=== PATIENT | female | born 1990 | race Caucasian/White ===

== ENCOUNTER 2017-09-07 13:09 | Inpatient (IN) | payer SELFPAY ==
[2017-09-07 14:28] LABS: MEAN CORPUSCULAR HEMOGLOBIN 29.1 pg (27.0-33.0); MEAN CORPUSCULAR HGB CONC 33.1 g/dl (32.0-36.5); MEAN CORPUSCULAR VOLUME 88.1 fl (80.0-96.0); PLATELET COUNT, AUTOMATED 278 10^3/uL (150-450); RED CELL DISTRIBUTION WIDTH 13.5 % (11.5-14.5); WHITE BLOOD COUNT 6.3 10^3/uL (4.0-10.0)
[2017-09-07 14:33] LABS: CONTROL LINE HCG INT CTR LINE PRESENT
[2017-09-07 14:51] LABS: ALBUMIN 4.7 GM/DL (3.2-5.2); ALBUMIN/GLOBULIN RATIO 1.34 (1.00-1.93); ALKALINE PHOSPHATASE 55 U/L (45-117); ALT/SGPT 79 U/L (12-78); ANION GAP 8 MEQ/L (8-16); AST/SGOT 33 U/L (7-37); BILIRUBIN,DIRECT 0.2 MG/DL (0.0-0.2); BILIRUBIN,TOTAL 0.6 MG/DL (0.2-1.0); BLOOD UREA NITROGEN 8 MG/DL (7-18); CALCIUM LEVEL 9.7 MG/DL (8.5-10.1); CARBON DIOXIDE LEVEL 27 MEQ/L (21-32); CHLORIDE LEVEL 105 MEQ/L (98-107); CREATININE FOR GFR 0.58 MG/DL (0.55-1.02); GLOMERULAR FILTRATION RATE > 60.0 (>60); GLUCOSE, FASTING 89 MG/DL (70-105); POTASSIUM SERUM 3.7 MEQ/L (3.5-5.1); SODIUM LEVEL 140 MEQ/L (136-145); TOTAL PROTEIN 8.2 GM/DL (6.4-8.2)
[2017-09-07] MEDS ORDERED: SERT-138 PO (14:52)
[2017-09-07] MEDS ORDERED: SERT50TA PO (14:53)
[2017-09-07] MEDS ORDERED: traZODone 50 MG TAB PO PRN (19:15)
[2017-09-07] MEDS ORDERED: MAALOX 30 ML SUSP *UDC PO PRN (19:15)
[2017-09-07 19:31] LABS: METHADONE URINE NEGATIVE (NEGATIVE)
[2017-09-07] MEDS: PALIPERIDONE 3 MG ER TAB (INVEGA) PO SCH (21:39)
[2017-09-08 00:21] VITALS: BP 127/73
[2017-09-08 06:36] VITALS: BP 128/70
--- NOTE | 2017-09-08 11:27 | HPEPDOC ---
[facility] Medical History & Physical Date of Admission Sep 07, 2017 History and Physical PCP: None ATTENDING: Dr. Chip Shah HPI: 27yoF admitted to [facility] for unspecified psychotic disorder, being medically examined today. The pt has no acute medical complaints today. She is able to provide only limited history and states she has no complaints at this time. Per record, Pt is Von, 3 mo Post . Denies any fevers, chills, weakness, fatigue, DOUGLAS, CP, SOB, cough, palpitations, abdominal pain, N/V/D or changes in bowel or bladder habits. PMHx: anxiety depression H/O SI PSHX: ectopic 2014 SOCHX: Resides in: [facility] Marital Status: Kids: 1 Employment: unemployed Tobacco use: denies ETOH: denies Illicit Drugs: Denies IV Drug Use: Denies Tattoos done unprofessionally: Denies FAMHX: Pt is not able to provide at this time, ROS: As noted in HPI, otherwise 11pt ROS of systems reviewed and remarkable only for LMP 07/31/17. PE: GEN: 27yoF, appears stated age. Well-nourished, well developed. No acute distress. Alert and oriented x 3. Pt is not able to answer many questions, does not make eye contact. HEENT: Normocephalic, atraumatic. Pupils are equal, round, and reactive to light. Extraocular movements are intact. No nystagmus appreciated. Sclera are nonicteric. Conjunctiva without injection. Nose midline. Nasal turbinates without bogginess. EACs both patent BL. TMs both visualized and triplett with good cone of light, no bulging or erythema. No facial asymmetry. Moist mucous membranes. Dentition fair. Pharynx pink and moist, no cobblestoning. Neck supple , trachea midline. No lymphadenopathy or thyromegaly appreciated. CHEST: Regular rate and rhythm, +S1, +S2 LUNGS: Clear to auscultation bilaterally. No wheezes, rales, or rhonchi. Breathing appears symmetric and easy. Patient is speaking in full sentences. No accessory muscle use. ABD: Round, soft, non-tender, non-distended. +Bowel sounds throughout. No rebound or guarding. No costovertebral angle tenderness. EXT: Pulses 2+ bilaterally dorsalis pedis and radial. No lower extremity edema appreciated. SKIN: [place], dry, warm. Capillary refill <2sec. No rashes. NEURO: Alert and oriented x 3. Cranial nerves III-XII are intact. No focal deficits appreciated. EKG: pending. A&P: 27yoF admitted to [facility] for unspecified psychotic disorder 1. Psych. Plan per Psychiatry. Obtain baseline EKG to assure the safety of psychiatric medications as they can prolong the QT interval. 2. Elevated LFT. Recheck CMP in AM. Add hepatitis profile as well. 3. Follow up. No Primary Care Provider. Will attempt to establish PCP on discharge. 4. Staff member Nisha present throughout exam. Vital Signs Vital Signs Date Time Temp Pulse Resp B/P (MAP) Pulse Ox O2 Delivery O2 Flow Rate FiO2 09/08/17 06:36 97.9 66 18 128/70 (89) 09/07/17 22:03 98 Room Air Laboratory Data Labs 24H Laboratory Tests 2 09/07/17 14:05: Nucleated Red Blood Cells % (auto) 0.0, Anion Gap 8, Glomerular Filtration Rate > 60.0, Calcium Level 9.7, Aspartate Amino Transf (AST/SGOT) 33, Alanine Aminotransferase (ALT/SGPT) 79H, Alkaline Phosphatase 55, Total Bilirubin 0.6, Direct Bilirubin 0.2, Total Protein 8.2, Albumin 4.7, Albumin/Globulin Ratio 1.34, Thyroid Stimulating Hormone (TSH) 1.430, Human Chorionic Gonadotropin, Qual NEGATIVE, Salicylates Level < 1.7L, Urine Amphetamines Screen NEGATIVE, Urine Benzodiazepines Screen NEGATIVE, Urine Opiates Screen NEGATIVE, Urine Methadone Screen NEGATIVE, Acetaminophen Level < 2.0L, Urine Barbiturates Screen NEGATIVE, Urine Phencyclidine Screen NEGATIVE, Urine Cocaine Metabolite Screen NEGATIVE, Urine Cannabinoids Screen NEGATIVE, Ethyl Alcohol Level < 0.003 CBC/BMP Laboratory Tests 09/07/17 14:05 Red Blood Count 4.94, Mean Corpuscular Volume 88.1, Mean Corpuscular Hemoglobin 29.1, Mean Corpuscular Hemoglobin Concent 33.1, Red Cell Distribution Width 13.5 Home Medications Scheduled Sertraline Hcl (Sertraline HCl) 50 Mg Tab, 50 MG PO DAILY Allergies Coded Allergies: No Known Allergies (Unverified , 09/07/17) Michelle Jones Sep 08, 2017 11:27
[2017-09-08] MEDS: VENLAFAXINE **XR** 37.5 MG CAPSULE PO SCH (15:15)
[2017-09-08 18:00] VITALS: BP 120/68
--- NOTE | 2017-09-08 19:08 | ECGEPIP ---
Stationary ECG Study [facility] Test Date: 2017-09-08 Pat Name: PRISCILLA REIS Department: Room: [place] [address] Gender: F Financial Analysis Consultant: MODESTA : 1990 Requested By: Michelle Jones Order Number: [id number] Reading MD: Chip Shah Measurements Intervals [place] Rate: 67 P: 52 [place]: 91 QRS: 76 QRSD: 94 T: 0 QT: 373 QTc: 395 Interpretive Statements SINUS RHYTHM WITH SINUS ARRHYTHMIA WITH SHORT [place] INTERVAL ST DEVIATION AND MODERATE T-WAVE ABNORMALITY, CONSIDER ANTERIOR ISCHEMIA Comparison tracing not on file Electronically Signed On 09-08-2017 19:08:06 EDT by Chip Shah
[2017-09-08] MEDS: PALIPERIDONE 3 MG ER TAB (INVEGA) PO SCH (19:44)
[2017-09-08] MEDS: QUEtiapine FUMARATE 50 MG TAB PO SCH (19:44)
[2017-09-08] MEDS ORDERED: QUEtiapine FUMARATE 50 MG TAB PO ONE (20:30)
[2017-09-08] MEDS: OLANZapine ORAL DISINTEGRATING TAB 5MG PO PRN (20:31)
[2017-09-09 07:10] VITALS: BP 139/64
[2017-09-09 07:14] LABS: ALBUMIN 4.2 GM/DL (3.2-5.2); ALBUMIN/GLOBULIN RATIO 1.45 (1.00-1.93); ALKALINE PHOSPHATASE 51 U/L (45-117); ALT/SGPT 66 U/L (12-78); ANION GAP 8 MEQ/L (8-16); AST/SGOT 20 U/L (7-37); BILIRUBIN,TOTAL 0.9 MG/DL (0.2-1.0); BLOOD UREA NITROGEN 12 MG/DL (7-18); CALCIUM LEVEL 9.5 MG/DL (8.5-10.1); CARBON DIOXIDE LEVEL 29 MEQ/L (21-32); CHLORIDE LEVEL 105 MEQ/L (98-107); CREATININE FOR GFR 0.66 MG/DL (0.55-1.02); GLOMERULAR FILTRATION RATE > 60.0 (>60); GLUCOSE, FASTING 83 MG/DL (70-105); POTASSIUM SERUM 3.7 MEQ/L (3.5-5.1); SODIUM LEVEL 142 MEQ/L (136-145); TOTAL PROTEIN 7.1 GM/DL (6.4-8.2)
--- NOTE | 2017-09-09 10:00 | MHHPE ---
DATE OF ADMISSION: 09/07/2017 LEGAL STATUS ON ADMISSION: 9.39 legal status. CHIEF COMPLAINT: Patient is selectively mute. HISTORY OF PRESENT ILLNESS: 27-year-old female with history of depression admitted to our unit on a 9.39 legal status. According to the chart, the patient was brought to the emergency department by her and she is 3 months and displaying psychosis. The patient was unable to cooperate with the information. The stated that the patient has a long history of depression and is now three months . She gave to a daughter, that she has been hospitalized two times at [facility], last time admitted 2 years ago for suicidal ideation with plans of suffocation, stabbing or jumping from a structure. She also was hospitalized in the past at [facility] in [place]. According to the , the patient is suffering from auditory and visual hallucinations and is being delusional. He stated that she is seeing three women and claims, "she is helping them to kill themselves". He believes she is at risk of killing others. Apparently, she has been having command auditory hallucinations to harm others in addition to paranoid delusions. During the interview today, patient is guarded with very poor eye contact, severe psychomotor retardation, displaying thought blocking. There is a significant delay between the question and answer. The patient admits to auditory hallucinations, says "Divehi and French languages". She makes states such as "if I let him or I get close to him". PAST PSYCHIATRIC HISTORY: As above. The patient has a history of severe depression, possibly with psychotic features. PAST MEDICAL HISTORY: Unobtainable at this time. FAMILY HISTORY: Could not be obtained. SOCIAL HISTORY: Could not be obtained. SUBSTANCE ABUSE HISTORY: Could not be obtained. REVIEW OF SYSTEMS: Could not be obtained. PHYSICAL EXAMINATION: As per physician assistant tennis professional. LABS: CBC is within normal limits. CMP is unremarkable, except ALT of 79. TSH within normal limits. test is negative. Blood alcohol level is negative. Urine drug screen is negative. MENTAL STATUS EXAMINATION: The patient is unable to cooperate with normal mental status examination. The patient is dressed in [facility]. Speech is selectively mute. No eye contact. Mood is severely depressed. Affect blunted. Unable to assess memory, attention, concentration or orientation. The patient appears to react to general stimuli. The patient appears to be religiously preoccupied and paranoid. Judgment and insight are very poor. DIAGNOSIS: AXIS I: Unspecified psychosis. Rule out major depressive disorder with psychotic features. Rule out psychosis. AXIS II: Deferred. AXIS III: None acute. INITIAL TREATMENT PLAN: The patient was admitted on a 9.39 legal status. Complete history could not be obtained. With her permission, family will be contacted and data base will be expanded. Current medication regimen will be reviewed and changed accordingly. She will be provided with a protected environment. She will be treated with individual, group, and milieu therapy. She will also receive supportive psychoeducation. Discharge planning will commence immediately. Length of stay will be within 7 and 10 days. Outpatient followup will be strongly recommended. Treatment plan will focus initially on depression, risk for suicide. Risk for harm to others. Altered thoughts and altered perceptions.
[2017-09-09] MEDS: VENLAFAXINE **XR** 37.5 MG CAPSULE PO SCH (11:41)
[2017-09-09] MEDS: ACETAMINOPHEN TAB 650MG DOSE (2X325MG) PO PRN (14:54)
[2017-09-09 18:23] VITALS: BP 118/70
--- NOTE | 2017-09-09 20:19 | MHIPN ---
DATE: 09/09/2017 The patient is on Effexor XR 37.5 mg by mouth in the morning, Seroquel 50 mg by mouth at night, Invega 3 mg by mouth at night, Zyprexa Zydis as needed for anxiety and agitation. SUBJECTIVE: The patient is selectively mute. OBJECTIVE: No major changes from yesterday. The patient continues to be selectively mute, although she is able to answer some questions. Her thought blocking appears to be somewhat improved from yesterday. The patient continues to be paranoid, appears to be reacting to internal stimuli. Reports auditory hallucinations. The patient is tolerating well the medication and denies side effects. MENTAL STATUS EXAMINATION: The patient is dressed in [facility]. The patient is partially cooperative. Minimal eye contact. Speech is very slow, monotone with blocking. Mood is very depressed. Affect is blunted. The patient continues delusions with auditory and visual hallucinations. Unable to test attention, concentration and memory. Insight and judgment are very poor. ASSESSMENT: 1. Depression. 2. Psychosis. PLAN: 1. Increase Effexor XR to 75 mg by mouth in the morning. 2. Continue Seroquel 50 mg by mouth at night. 3. Continue Invega 3 mg by mouth at night. 4. Continue olanzapine 5 mg as needed for anxiety and agitation.
[2017-09-09] MEDS: PALIPERIDONE 3 MG ER TAB (INVEGA) PO SCH (20:31)
[2017-09-09] MEDS: QUEtiapine FUMARATE 50 MG TAB PO SCH (20:31)
[2017-09-09] MEDS: OLANZapine ORAL DISINTEGRATING TAB 5MG PO PRN (21:45)
[2017-09-10 06:37] VITALS: BP 112/65
[2017-09-10] MEDS: VENLAFAXINE **XR** 75MG CAPSULE PO SCH (08:55)
[2017-09-10] MEDS: ACETAMINOPHEN TAB 650MG DOSE (2X325MG) PO PRN (11:58)
--- NOTE | 2017-09-10 16:48 | MHIPN ---
DATE: 09/10/2017 27-year-old female with history of depression admitted on a 9.39 legal status. Patient is 3 months and displaying psychosis. Patient was unable to cooperate with mental status examination, was very paranoid, delusional, presenting thought blocking and significant delay between question and answer. MEDICATIONS: - Effexor XR 75 mg by mouth every morning - Seroquel 50 mg by mouth nightly - Invega 3 mg by mouth nightly SUBJECTIVE: "I'm about the same." OBJECTIVE: Patient continues psychotic with thought blocking and significant delay between question and answer, although has improved for the last 24 hours. Patient is denying side effect from the medication. Patient is compliant. MENTAL STATUS EXAMINATION: Patient is dressed in [facility]. Patient is cooperative, has very poor eye contact. Speech is very slow and monotone. Mood is depressed. Affect is blunted. Patient continues with paranoid delusions, appears to respond to internal stimuli. Unable to test attention and concentration and memory but appears to be significantly impaired. Insight and judgment is very poor. ASSESSMENT: 1. psychosis. 2. depression. PLAN: 1. Continue Effexor XR 75 mg by mouth every morning. 2. Continue Seroquel 50 mg by mouth nightly. 3. Continue Invega 3 mg by mouth nightly. 4. Continue medication management, individual and group therapy.
[2017-09-10 18:00] VITALS: BP 112/65
[2017-09-10] MEDS: PALIPERIDONE 3 MG ER TAB (INVEGA) PO SCH (21:48)
[2017-09-10] MEDS: QUEtiapine FUMARATE 50 MG TAB PO SCH (21:48)
[2017-09-11] MEDS: ACETAMINOPHEN TAB 650MG DOSE (2X325MG) PO PRN (03:17)
[2017-09-11 06:31] VITALS: BP 124/77
[2017-09-11] MEDS: VENLAFAXINE **XR** 75MG CAPSULE PO SCH (08:35)
--- NOTE | 2017-09-11 16:37 | IPN ---
DATE: 09/11/2017 A 27-year-old female with a history of depression, admitted to our unit on a 9.39 legal status. Patient is 3 months and is also displaying psychosis. Patient was unable to cooperate with mental status examination. Was very paranoid with significant thought blocking and delay between question and answer. MEDICATIONS: - Effexor XR 75 mg by mouth every morning. - Seroquel 50 mg by mouth at bedtime. - Invega 3 mg by mouth at bedtime SUBJECTIVE: "M parents are killers." OBJECTIVE: Patient continues to be paranoid. Her thought blocking and delay between question and answer has been normalizing. Patient says that she can think more clearly and less confused. Patient continues with very little insight. MENTAL STATUS EXAMINATION: Patient dressed in [facility]. Patient is cooperative. Has very poor eye contact. The speech is very slow and monotone, blocked. Mood is depressed. Affect is blunted. The patient continues paranoid, delusional. Appears to respond to internal stimuli. Unable to test attention, concentration, and memory. Insight and judgment are very poor. ASSESSMENT: 1. psychosis. 2. depression. PLAN: 1. Continue Effexor XR 75 mg by mouth every morning. 2. Continue Seroquel 50 mg by mouth at bedtime. 3. Continue Invega 3 mg by mouth at bedtime. 4. Continue medication management, individual and group therapy.
[2017-09-11 18:00] VITALS: BP 100/56
[2017-09-11] MEDS: QUEtiapine FUMARATE 50 MG TAB PO SCH (20:58)
[2017-09-11] MEDS: PALIPERIDONE 3 MG ER TAB (INVEGA) PO SCH (20:58)
[2017-09-12 06:43] VITALS: BP 127/56
[2017-09-12] MEDS: VENLAFAXINE **XR** 75MG CAPSULE PO SCH (08:59)
[2017-09-12 18:00] VITALS: BP 115/60
[2017-09-12] MEDS: PALIPERIDONE 3 MG ER TAB (INVEGA) PO SCH (21:02)
[2017-09-12] MEDS: QUEtiapine FUMARATE 50 MG TAB PO SCH (21:03)
[2017-09-13 07:21] VITALS: BP 119/74
[2017-09-13] MEDS: VENLAFAXINE **XR** 75MG CAPSULE PO SCH (08:24)
[2017-09-13] MEDS: OLANZapine ORAL DISINTEGRATING TAB 5MG PO PRN (10:43)
[2017-09-13] MEDS: ACETAMINOPHEN TAB 650MG DOSE (2X325MG) PO PRN (16:36)
[2017-09-13 18:45] VITALS: BP 118/68
[2017-09-13] MEDS: PALIPERIDONE 3 MG ER TAB (INVEGA) PO SCH (21:21)
[2017-09-13] MEDS: QUEtiapine FUMARATE 50 MG TAB PO SCH (21:21)
[2017-09-14 07:20] VITALS: BP 109/64
[2017-09-14] MEDS: VENLAFAXINE **XR** 75MG CAPSULE PO SCH (08:15)
[2017-09-14] MEDS: OLANZapine ORAL DISINTEGRATING TAB 5MG PO PRN ×2 (08:15→16:39)
[2017-09-14] MEDS: MOM 30ML SUSPENSION UDC PO PRN (11:36)
[2017-09-14 18:00] VITALS: BP 113/63
[2017-09-14] MEDS: PALIPERIDONE 3 MG ER TAB (INVEGA) PO SCH (21:38)
[2017-09-14] MEDS: QUEtiapine FUMARATE 50 MG TAB PO SCH (21:38)
[2017-09-15 07:02] VITALS: BP 121/68
[2017-09-15] MEDS: VENLAFAXINE **XR** 75MG CAPSULE PO SCH (09:41)
--- NOTE | 2017-09-15 10:03 | IPN ---
DATE OF VISIT: 09/14/2017 This patient is a 27-year-old female with history of depression admitted to our unit on a 939 legal status. The patient is three months post and also displaying symptoms of post psychosis. The patient was very paranoid at arrival to the emergency department. MEDICATIONS: - Effexor XR 75 mg by mouth every morning - Seroquel 50 mg by mouth nightly - Invega 3 mg by mouth nightly SUBJECTIVE: "I am feeling a little better." OBJECTIVE: The patient is improving slowly. The patient is less paranoid. Her affect has improved. She is able to smile. She no longer has thought blocking and her paranoid delusion has decreased. MENTAL STATUS EXAMINATION: The patient is dressed in [facility]. The patient is more cooperative. She has fair eye contact. Speech is slow and monotone but improved. Mood is depressed but improved. Affect is restricted. The patient continues with paranoid delusions but also the severity and the frequency are decreased. The patient is no longer responding to internal stimuli. The patient's concentration and memory are improving. Insight and judgment are also improving. ASSESSMENT: 1. Post psychosis. 2. Post depression. PLAN: 1. Continue Effexor XR 75 mg by mouth every morning. 2. Seroquel 50 mg by mouth nightly. 3. Invega 3 mg by mouth nightly. 4. Continue medication management, individual and group therapy.
--- NOTE | 2017-09-15 10:31 | IPNPDOC ---
Date Seen The patient was seen on 09/15/17. Progress Note HPI: 27yoF admitted to [facility] for unspecified psychotic disorder, being medically examined today. Pt is Yarsani, 3 mo Post . I am requested to re evaluate the pt related to ear pain. The Pt states she has noticed B/L ear pressure. PND and rhinorrhea clear. No ST. No fevers/chills. No cough/sputum. Pt states she is known to have allergies. Denies any fevers, chills, weakness, fatigue, DOUGLAS, CP, SOB, cough, palpitations, abdominal pain, N/V/D or changes in bowel or bladder habits. PMHx: anxiety depression H/O SI PSHX: ectopic 2014 PE: GEN: 27yoF, appears stated age. Well-nourished, well developed. No acute distress. Alert and oriented x 3. Pt is slow to answer questions, does not make eye contact. HEENT: Normocephalic, atraumatic. Pupils are equal, round, and reactive to light. Extraocular movements are intact. No nystagmus appreciated. Sclera are nonicteric. Conjunctiva without injection. Nose midline. Nasal turbinates without bogginess. EACs both patent BL. TMs both visualized and triplett with good cone of light, no bulging or erythema. No facial asymmetry. No facial TTP. Moist mucous membranes. Dentition fair. Pharynx pink and moist. Neck supple, trachea midline. No lymphadenopathy or thyromegaly appreciated. CHEST: Regular rate and rhythm, +S1, +S2 LUNGS: Clear to auscultation bilaterally. No wheezes, rales, or rhonchi. Breathing appears symmetric and easy. Patient is speaking in full sentences. No accessory muscle use. ABD: Round, soft, non-tender, non-distended. +Bowel sounds throughout. No rebound or guarding. No costovertebral angle tenderness. EXT: Pulses 2+ bilaterally dorsalis pedis and radial. No lower extremity edema appreciated. SKIN: [place], dry, warm. Capillary refill <2sec. No rashes. NEURO: Alert and oriented x 3. Cranial nerves III-XII are intact. No focal deficits appreciated. EKG: on file. A&P: 27yoF admitted to [facility] for unspecified psychotic disorder 1. Psych. Plan per Psychiatry. Obtain baseline EKG to assure the safety of psychiatric medications as they can prolong the QT interval. 2. Allergic rhinitis. T max 99.1. No leukocytosis. No signs of infection at this time. Symptoms seem c/w allergic rhinitis. Add Zyrtec 10 mg daily. Add Flonase daily. Monitor. 3. Follow up. No Primary Care Provider. Will attempt to establish PCP on discharge. VS, I&O, 24H, Fishbone Vital Signs/I&O Vital Signs Date Time Temp Pulse Resp B/P (MAP) Pulse Ox O2 Delivery O2 Flow Rate FiO2 09/15/17 08:59 98.8 98.8 09/15/17 07:02 81 20 121/68 (85) 09/14/17 07:20 Room Air Michelle Jones Sep 15, 2017 10:31
[2017-09-15] MEDS: FLUTICASONE PROP 0.05% NASAL SPRAY 16 GM (FLONASE) SCH (10:43)
[2017-09-15] MEDS: DOCUSATE SODIUM 100 MG CAP PO SCH ×2 (10:43→20:48)
[2017-09-15] MEDS: CETIRIZINE (ZyrTEC) 10 MG TAB PO SCH (10:43)
--- NOTE | 2017-09-15 17:35 | MHIPN ---
DATE: 09/15/2017 HISTORY: A 27-year-old female with history of depression admitted to our unit acutely psychotic. The patient is three months . The patient was very paranoid and delusional. MEDICATIONS: - Effexor XR 75 mg by mouth every morning - Seroquel 50 mg by mouth at bedtime - Invega 3 mg by mouth at bedtime SUBJECTIVE: "I'm feeling better." OBJECTIVE: The patient is improving slowly, is less paranoid today. She made a comment about "Peter hanging upside down." She was somewhat religiously preoccupied. The patient continues with low insight, although she is compliant with medications and recommendations. MENTAL STATUS EXAMINATION: The patient is dressed in [facility]. The patient is cooperative. The patient has fair eye contact. Speech is slow and monotone. Mood is depressed and anxious. Affect is blunted. The patient continues to have paranoid delusions and is religiously preoccupied. Denies hallucinations. Memory, attention, and concentration are fair. The patient is able to contract for safety while in the hospital. Insight and judgment is limited. ASSESSMENT: 1. psychosis. 2. depression. PLAN: 1. Continue Effexor XR 75 mg by mouth every morning. 2. Continue Seroquel 50 mg by mouth at bedtime. 3. Continue Invega 3 mg by mouth at bedtime. 4. Continue medication management, individual and group therapy.
[2017-09-15 18:14] VITALS: BP 107/55
[2017-09-15] MEDS: PALIPERIDONE 3 MG ER TAB (INVEGA) PO SCH (20:47)
[2017-09-15] MEDS: OLANZapine ORAL DISINTEGRATING TAB 5MG PO PRN (20:48)
[2017-09-15] MEDS: QUEtiapine FUMARATE 50 MG TAB PO SCH (20:48)
[2017-09-16 06:37] VITALS: BP 107/66
[2017-09-16] MEDS: FLUTICASONE PROP 0.05% NASAL SPRAY 16 GM (FLONASE) SCH (08:36)
[2017-09-16] MEDS: DOCUSATE SODIUM 100 MG CAP PO SCH ×2 (08:36→20:03)
[2017-09-16] MEDS: VENLAFAXINE **XR** 75MG CAPSULE PO SCH (08:36)
[2017-09-16] MEDS: CETIRIZINE (ZyrTEC) 10 MG TAB PO SCH (08:36)
[2017-09-16 18:00] VITALS: BP 120/77
[2017-09-16] MEDS: QUEtiapine FUMARATE 50 MG TAB PO SCH (20:03)
[2017-09-16] MEDS: PALIPERIDONE 3 MG ER TAB (INVEGA) PO SCH (20:03)
--- NOTE | 2017-09-17 06:16 | IPN ---
DATE: 09/16/2017 HISTORY: A 27-year-old female with history of depression, admitted to our unit with psychotic symptoms. The patient is three months . The patient was very paranoid and delusional. MEDICATIONS: - Effexor XR 75 mg by mouth every morning - Seroquel 50 mg by mouth at bedtime - Invega 3 mg by mouth at bedtime SUBJECTIVE: "When can I go home?" OBJECTIVE: The patient continues to improve. Her paranoia has significantly decreased. The patient today asked me if I said "I'll be the one to skin your head" so the patient is having less paranoid symptoms but intermittently has auditory hallucinations or paranoid delusions. Denies side effect from medication. MENTAL STATUS EXAMINATION: The patient is dressed in [facility]. The patient is cooperative. The patient has fair eye contact. Speech is slow and monotone. No blocking. Mood is depressed. Affect is blunted. The patient continues to have intermittent paranoid delusions and to be religiously preoccupied but the frequency and intensity have significantly improved from admission. Memory, attention and concentration are fair. The patient is able to contract for safety in the unit. Insight and judgment are limited. ASSESSMENT: 1. psychosis. 2. depression. PLAN: 1. Continue Effexor XR 75 mg by mouth every morning. 2. Continue Seroquel 50 mg by mouth at bedtime. 3. Continue Invega 3 mg by mouth at bedtime. 4. Continue medication management, individual and group therapy.
[2017-09-17 06:29] VITALS: BP 111/59
[2017-09-17] MEDS: DOCUSATE SODIUM 100 MG CAP PO SCH ×2 (08:22→21:04)
[2017-09-17] MEDS: CETIRIZINE (ZyrTEC) 10 MG TAB PO SCH (08:22)
[2017-09-17] MEDS: FLUTICASONE PROP 0.05% NASAL SPRAY 16 GM (FLONASE) SCH (08:22)
[2017-09-17] MEDS: VENLAFAXINE **XR** 75MG CAPSULE PO SCH (08:22)
[2017-09-17] MEDS: OLANZapine ORAL DISINTEGRATING TAB 5MG PO PRN ×2 (08:25→21:06)
[2017-09-17] MEDS: ACETAMINOPHEN TAB 650MG DOSE (2X325MG) PO PRN (08:28)
[2017-09-17] MEDS: MOM 30ML SUSPENSION UDC PO PRN (13:07)
[2017-09-17 18:00] VITALS: BP 125/79
[2017-09-17] MEDS: QUEtiapine FUMARATE 50 MG TAB PO SCH (21:04)
[2017-09-17] MEDS: PALIPERIDONE 3 MG ER TAB (INVEGA) PO SCH (21:04)
--- NOTE | 2017-09-18 02:47 | MHIPN ---
DATE OF SERVICE: 09/17/2017 HISTORY: 27-year-old female with history of depression, admitted to our unit for treatment of depression and psychotic symptoms. Patient is 3 months . Patient was very paranoid and delusional. MEDICATIONS: - Effexor XR 75 mg by mouth every morning - Seroquel 50 mg by mouth nightly - Invega 3 mg by mouth nightly SUBJECTIVE: "I think I'm ready to go." OBJECTIVE: Patient continues improving, although she admits to have intermittent suicidal thoughts and auditory hallucinations throughout the day. The severity, frequency of the above have been progressively diminishing throughout the hospitalization. Patient is motivated for treatment and is compliant. MENTAL STATUS EXAMINATION: Patient is dressed in [facility]. Patient is cooperative. Patient has fair eye contact. Speech is slow and monotone. Mood is depressed, but improved. Affect is restricted, but also improved. Patient continues to have paranoid delusions intermittently and also auditory hallucinations and suicidal thoughts throughout the day. Memory, attention and concentration are fair. Patient is able to contract for safety while in the hospital. Insight and judgment is improving. ASSESSMENT: 1. psychosis. 2. depression. PLAN: 1. Continue Effexor XR 75 mg by mouth every morning. 2. Continue Seroquel 50 mg by mouth at bedtime. 3. Continue Invega 3 mg by mouth at bedtime. 4. Continue medication management, individual and group therapy.
[2017-09-18 06:25] VITALS: BP 124/77
[2017-09-18] MEDS: FLUTICASONE PROP 0.05% NASAL SPRAY 16 GM (FLONASE) SCH (08:41)
[2017-09-18] MEDS: CETIRIZINE (ZyrTEC) 10 MG TAB PO SCH (08:41)
[2017-09-18] MEDS: VENLAFAXINE **XR** 75MG CAPSULE PO SCH (08:41)
[2017-09-18] MEDS: DOCUSATE SODIUM 100 MG CAP PO SCH ×2 (08:41→22:09)
[2017-09-18] MEDS ORDERED: MAGNESIUM CITRATE 300 ML BTL PO ONE (10:00)
[2017-09-18 18:00] VITALS: BP 114/77
[2017-09-18] MEDS: PALIPERIDONE 3 MG ER TAB (INVEGA) PO SCH (22:09)
[2017-09-18] MEDS: QUEtiapine FUMARATE 50 MG TAB PO SCH (22:09)
--- NOTE | 2017-09-19 02:51 | MHIPN ---
DATE OF SERVICE: 09/18/2017 HISTORY: 27-year-old female with history of depression, admitted to our unit for treatment of depression with psychotic symptoms. Patient is 3 months . She was very paranoid and delusional. MEDICATIONS: - Effexor XR 75 mg by mouth every morning - Seroquel 50 mg by mouth nightly - Invega 3 mg by mouth nightly SUBJECTIVE: "I'm feeling much better." OBJECTIVE: Patient continues improving, is significantly less depressed, although she still reports intermittent suicidal thoughts, although she is able to contract for safety while in the hospital. Patient also is experiencing auditory hallucinations, but the severity and the frequency are decreasing. Patient is motivated and is compliant with the medication. MENTAL STATUS EXAMINATION: Patient is dressed in [facility]. Patient is cooperative, has fair eye contact. Speech is slow and monotone, but improving. Mood is depressed, but also improving. Affect is less restricted. Patient continues to have auditory hallucinations, but less frequently. Patient also reports suicidal thoughts, but is able to contract for safety while in the hospital. Insight and judgment is improved. ASSESSMENT: 1. psychosis. 2. depression. PLAN: 1. Continue Effexor XR 75 mg by mouth every morning. 2. Seroquel 50 mg by mouth nightly. 3. Invega 3 mg by mouth nightly.
[2017-09-19 06:46] VITALS: BP 108/60
[2017-09-19] MEDS: DOCUSATE SODIUM 100 MG CAP PO SCH ×2 (08:40→22:02)
[2017-09-19] MEDS: FLUTICASONE PROP 0.05% NASAL SPRAY 16 GM (FLONASE) SCH (08:40)
[2017-09-19] MEDS: CETIRIZINE (ZyrTEC) 10 MG TAB PO SCH (08:40)
[2017-09-19] MEDS: VENLAFAXINE **XR** 75MG CAPSULE PO SCH (08:40)
[2017-09-19] MEDS: OLANZapine ORAL DISINTEGRATING TAB 5MG PO PRN (11:51)
[2017-09-19 18:00] VITALS: BP 138/77
[2017-09-19] MEDS: PALIPERIDONE 3 MG ER TAB (INVEGA) PO SCH (22:02)
[2017-09-19] MEDS: QUEtiapine FUMARATE 50 MG TAB PO SCH (22:02)
[2017-09-20 06:30] VITALS: BP 114/62
[2017-09-20] MEDS: VENLAFAXINE **XR** 75MG CAPSULE PO SCH (08:04)
[2017-09-20] MEDS: FLUTICASONE PROP 0.05% NASAL SPRAY 16 GM (FLONASE) SCH (08:04)
[2017-09-20] MEDS: CETIRIZINE (ZyrTEC) 10 MG TAB PO SCH (08:05)
[2017-09-20] MEDS: DOCUSATE SODIUM 100 MG CAP PO SCH ×2 (08:05→20:28)
[2017-09-20] MEDS: OLANZapine ORAL DISINTEGRATING TAB 5MG PO PRN (10:00)
[2017-09-20 18:00] VITALS: BP 105/65
[2017-09-20] MEDS: QUEtiapine FUMARATE 50 MG TAB PO SCH (20:28)
[2017-09-20] MEDS: PALIPERIDONE 3 MG ER TAB (INVEGA) PO SCH (20:28)
[2017-09-21 06:40] VITALS: BP 106/63
[2017-09-21] MEDS: CETIRIZINE (ZyrTEC) 10 MG TAB PO SCH (08:24)
[2017-09-21] MEDS: VENLAFAXINE **XR** 75MG CAPSULE PO SCH (08:24)
[2017-09-21] MEDS: FLUTICASONE PROP 0.05% NASAL SPRAY 16 GM (FLONASE) SCH (08:24)
[2017-09-21] MEDS: DOCUSATE SODIUM 100 MG CAP PO SCH (08:24)
[2017-09-21] MEDS ORDERED: CETI10TA PO (10:50)
[2017-09-21] MEDS ORDERED: COLA100C5 PO (10:50)
[2017-09-21] MEDS ORDERED: PALI1TAB2 PO (10:50)
[2017-09-21] MEDS ORDERED: QUET5TAB PO (10:50)
[2017-09-21] MEDS ORDERED: VENL75CA47 PO (10:50)
--- NOTE | 2017-09-21 16:55 | MHDS ---
DATE OF ADMISSION: 09/07/2017 DATE OF DISCHARGE: 09/21/2017 LEGAL STATUS AT ADMISSION: 9.39 legal status. HISTORY OF PRESENT ILLNESS: A 27-year-old female with history of depression admitted to our unit on a 9.39 legal status. According to the chart, the patient was brought to our emergency department (ED) by her as she is three months and displaying psychosis. The patient was unable to cooperate with the information. Her stated that the patient has a long history of depression and is now three months . She gave to a daughter. The patient has been hospitalized twice as inpatient for psychiatric reasons. Last time she was admitted, two years ago, for suicidal ideation with plans of suffocation, stabbing or jumping from a structure. She was also hospitalized at [facility]. According to her , she is suffering from auditory and visual hallucinations and she has been delusional. He stated that she had seen three women and claims, "she is helping them to kill themselves." He believes that she is at risk of killing others. Apparently, she has been having command auditory hallucinations to harm others in addition to paranoid delusions. During the first interview in our unit, the patient was guarded with very poor eye contact, severe psychomotor retardation, displaying thought blocking. There was a significant delay between questions and any answer. The patient admitted to auditory hallucinations. She stated, "Bulgarian and Slovak language." She was also stating, "if I let him or I get close to him." LABORATORY DATA AT ADMISSION: CBC was unremarkable. CMP was within normal limits except ALT of 79. TSH was within normal limits. test was negative. UDS was negative. Blood alcohol level was negative. HOSPITAL COURSE: After the first evaluation, the patient was placed on Effexor XR that was increased slowly up to 75 mg by mouth every morning, Invega 3 mg by mouth at bedtime, and Seroquel 100 mg by mouth at bedtime which then was decreased to 50 mg by mouth at bedtime. With this medication, the patient was stabilized. The patient had no complications. Her mood improved slowly but steadily. Her psychosis also improved slowly. At the end of the hospitalization, the patient denies any auditory or visual hallucinations. There is no evidence of delusions. Denies suicidal or homicidal ideation. The patient has a family that is supportive. The family will monitor the daughter all the time until the patient is completely recovered from this depression/psychosis. She was able to smile and joke. She was interacting well with other patients and staff. Therefore, at this point, the patient does not meet criteria for involuntary hospitalization and can continue her treatment in outpatient basis. MENTAL STATUS EXAMINATION AT DISCHARGE: The patient is dressed in [facility]. The patient is calm and cooperative. Speech is clear, coherent with normal rate and is spontaneous. The patient has good eye contact. Mood is euthymic. Affect is appropriate and congruent with mood. The patient is oriented to time, place, person and situation. Maintains attention and concentration correctly. Instant recall, recent and remote memory are intact. Thought processes are coherent, logical and goal-directed. The patient does not have auditory or visual hallucinations. The patient does not have paranoid, persecutory, somatic, grandiose or catholic delusions. The patient is denying suicidal or homicidal ideation. Insight and judgment are fair. DISCHARGE DIAGNOSES: AXIS I: Major depression with psychotic features. depression. psychosis. AXIS II: Deferred. AXIS III: None acute. MEDICATIONS AT DISCHARGE: - Effexor XR 75 mg by mouth every morning - Seroquel 50 mg by mouth at bedtime - Invega 3 mg by mouth at bedtime CONDITION AT DISCHARGE: Stable. No suicidal or homicidal ideation. No auditory or visual hallucinations. No delusions. INSTRUCTIONS TO THE PATIENT: The patient is to continue taking her medications as prescribed and followup appointment. She is advised to maintain absolute sobriety from drugs and alcohol. The patient has scheduled appointment for medication management, individual psychotherapy, and primary care physician.
== END 2017-09-21 11:55 | disposition home or self-care (01) | DRG 757 ==
LOC: M ED 13:09 → M ED INP 19:02 → M PSY 22:30
PROVIDERS: ADMIT Psychiatry & Neurology Psychiatry; ATTEND Psychiatry & Neurology Psychiatry
DX: F53 Mental and behavioral disorders associated with the puerperium, not elsewhere classified (principal); J30.9 Allergic rhinitis, unspecified; R94.5 Abnormal results of liver function studies; Z79.899 Other long term (current) drug therapy

== ENCOUNTER 2022-06-23 20:06 | Inpatient (IN) | payer SELFPAY ==
[~2022-06-23] VITALS: Ht 170.2 cm; Wt 56.2 kg
[~2022-06-23 20:06] MED LIST: CETI10TA PO; COLA100C5 PO; EFFE75CA2 PO; INVE3TAB2 PO; PALI1TAB2 PO; QUET50TA4 PO; SERO50TA PO; SERT-138 PO; SERT-141 PO; VENL75CA47 PO; ZOLO50TA PO
[2022-06-23] MEDS ORDERED: TRAZ1TAB10 PO (20:22)
[2022-06-23] MEDS ORDERED: SERT-141 PO (20:22)
[2022-06-23 21:30] LABS: HEMATOCRIT 41.8 % (36.0-47.0); HEMOGLOBIN 13.9 g/dl (12.0-15.5); MEAN CORPUSCULAR HEMOGLOBIN 29.9 pg (27.0-33.0); MEAN CORPUSCULAR HGB CONC 33.3 g/dl (32.0-36.5); MEAN CORPUSCULAR VOLUME 89.9 fl (80.0-96.0); PLATELET COUNT, AUTOMATED 368 10^3/uL (150-450); RED BLOOD COUNT 4.65 10^6/uL (4.00-5.40); WHITE BLOOD COUNT 6.5 10^3/uL (4.0-10.0)
[2022-06-23 22:07] LABS: RSV AMPLIFICATION NEGATIVE (NEGATIVE)
[2022-06-23 22:17] LABS: URINE PREG TEST NEGATIVE (NEGATIVE)
[2022-06-23 22:22] LABS: ACETAMINOPHEN LEVEL < 2.0 UG/ML (10.0-30.0); ALBUMIN 4.2 GM/DL (3.2-5.2); ALT/SGPT 85 U/L (12-78); BILIRUBIN,DIRECT 0.1 MG/DL (0.0-0.2); BILIRUBIN,TOTAL 0.4 MG/DL (0.2-1.0); BLOOD UREA NITROGEN 11 MG/DL (7-18); CALCIUM LEVEL 9.7 MG/DL (8.5-10.1); CARBON DIOXIDE LEVEL 20 MEQ/L (21-32); CHLORIDE LEVEL 109 MEQ/L (98-107); CREATININE FOR GFR 0.54 MG/DL (0.55-1.30); ETHYL ALCOHOL (ETHANOL) < 0.003 % (0.000-0.010); GLOMERULAR FILTRATION RATE > 60.0 (>60); GLUCOSE, FASTING 79 MG/DL (70-100); SALICYLATE LEVEL 1.9 MG/DL (5.0-30.0); SODIUM LEVEL 140 MEQ/L (136-145); THYROID STIMULATING HORMONE < 0.005 uIU/ML (0.358-3.740); TOTAL PROTEIN 7.8 GM/DL (6.4-8.2)
[2022-06-23 22:52] LABS: AMPHETAMINES LEVEL URINE NEGATIVE (NEGATIVE); BARBITURATES URINE NEGATIVE (NEGATIVE); BENZODIAZEPINES URINE NEGATIVE (NEGATIVE); CANNABINOIDS URINE NEGATIVE (NEGATIVE); COCAINE METABOLITE URINE NEGATIVE (NEGATIVE); METHADONE URINE NEGATIVE (NEGATIVE); OPIATES URINE NEGATIVE (NEGATIVE); PHENCYCLIDINE URINE NEGATIVE (NEGATIVE)
[2022-06-24] MEDS ORDERED: MED REC COMMENT (08:47)
[2022-06-24] MEDS ORDERED: HOME MED LIST COMPLETE! XX SCH (08:50)
[2022-06-24] MEDS ORDERED: OLANZapine ORAL DISINTEGRATING TAB 5MG PO ONE (18:10)
[2022-06-25] MEDS ORDERED: BUSP10TA PO (19:28)
[2022-06-25] MEDS ORDERED: SERT-141 PO (19:28)
[2022-06-25] MEDS ORDERED: TRAZ1TAB14 PO (19:28)
[2022-06-25] MEDS ORDERED: HOME MED LIST COMPLETE! XX SCH (20:35)
[2022-06-25] MEDS ORDERED: MOM 30ML SUSPENSION UDC PO PRN (21:05)
[2022-06-25] MEDS ORDERED: NICOTINE 21MG/24HR 1 EA TRANSDERMAL TD PRN (21:05)
[2022-06-25] MEDS ORDERED: MAALOX 30 ML SUSP *UDC PO PRN (21:05)
[2022-06-25] MEDS: busPIRone 10 MG TAB PO SCH (21:17)
[2022-06-25] MEDS: traZODone 50 MG TAB PO SCH (21:18)
[2022-06-26 06:41] VITALS: BP 116/73
[2022-06-26] MEDS: SERTRALINE HCL 50 MG TAB PO SCH (09:48)
[2022-06-26] MEDS: busPIRone 10 MG TAB PO SCH ×2 (09:48→22:02)
[2022-06-26 11:09] LABS: FREE T4 2.85 NG/DL (0.76-1.46)
[2022-06-26 18:17] VITALS: BP 98/55
[2022-06-26] MEDS: traZODone 50 MG TAB PO SCH (22:02)
[2022-06-26] MEDS: PALIPERIDONE 3 MG ER TAB (INVEGA) PO SCH (22:02)
[2022-06-27 07:00] VITALS: BP 126/70
[2022-06-27] MEDS: SERTRALINE HCL 50 MG TAB PO SCH (08:59)
[2022-06-27] MEDS: busPIRone 10 MG TAB PO SCH ×2 (08:59→21:32)
[2022-06-27] MEDS: atenoloL 25 MG TAB PO SCH (09:00)
[2022-06-27 14:27] LABS: FREE T3 5.6 PG/ML (2.2-4.0); FREE T4 1.54 NG/DL (0.76-1.46); THYROID STIMULATING HORMONE < 0.005 uIU/ML (0.358-3.740)
[2022-06-27 15:12] LABS: THYROID PEROXIDASE ANTIBODY 36.6 U/ML (<60.0)
[2022-06-27 15:13] LABS: THYROGLOBULIN ANTIBODY 25.3 U/ML (<60.0)
[2022-06-27 16:08] VITALS: BP 99/78
[2022-06-27] MEDS: traZODone 50 MG TAB PO SCH (21:32)
[2022-06-27] MEDS: PALIPERIDONE 3 MG ER TAB (INVEGA) PO SCH (21:32)
[2022-06-27] MEDS: CHOLESTYRAMINE 4 GM PWD PKT PO SCH (21:33)
[2022-06-28 06:45] VITALS: BP 104/59
[2022-06-28] MEDS: busPIRone 10 MG TAB PO SCH ×2 (09:31→20:42)
[2022-06-28] MEDS: SERTRALINE HCL 50 MG TAB PO SCH (09:32)
[2022-06-28] MEDS: atenoloL 25 MG TAB PO SCH (09:35)
[2022-06-28] MEDS: CHOLESTYRAMINE 4 GM PWD PKT PO SCH ×2 (10:34→20:41)
[2022-06-28 16:39] VITALS: BP 118/71
[2022-06-28] MEDS: PALIPERIDONE 3 MG ER TAB (INVEGA) PO SCH (20:42)
[2022-06-28] MEDS: traZODone 50 MG TAB PO SCH (20:42)
[2022-06-29 06:43] VITALS: BP 121/72
[2022-06-29] MEDS: atenoloL 25 MG TAB PO SCH (08:38)
[2022-06-29] MEDS: busPIRone 10 MG TAB PO SCH ×2 (08:39→20:05)
[2022-06-29] MEDS: SERTRALINE HCL 50 MG TAB PO SCH (08:39)
[2022-06-29] MEDS: CHOLESTYRAMINE 4 GM PWD PKT PO SCH ×2 (10:05→21:54)
[2022-06-29] MEDS: OLANZapine ORAL DISINTEGRATING TAB 5MG PO PRN (14:59)
[2022-06-29 16:59] VITALS: BP 100/55
[2022-06-29] MEDS: PALIPERIDONE 3 MG ER TAB (INVEGA) PO SCH (20:04)
[2022-06-29] MEDS: traZODone 50 MG TAB PO SCH (20:04)
[2022-06-30 06:27] VITALS: BP 107/53
[2022-06-30] MEDS: SERTRALINE HCL 50 MG TAB PO SCH (08:52)
[2022-06-30] MEDS: busPIRone 10 MG TAB PO SCH ×2 (08:52→20:30)
[2022-06-30] MEDS: atenoloL 25 MG TAB PO SCH (08:53)
[2022-06-30] MEDS: CHOLESTYRAMINE 4 GM PWD PKT PO SCH ×2 (11:30→21:23)
[2022-06-30 14:48] LABS: FREE T4 1.25 NG/DL (0.76-1.46); THYROID STIMULATING HORMONE < 0.005 uIU/ML (0.358-3.740)
[2022-06-30 18:32] VITALS: BP 104/54
[2022-06-30] MEDS: traZODone 50 MG TAB PO SCH (20:30)
[2022-06-30] MEDS: PALIPERIDONE 3 MG ER TAB (INVEGA) PO SCH (20:30)
[2022-07-01] MEDS: ACETAMINOPHEN TAB 650MG DOSE (2X325MG) PO PRN ×2 (02:50→20:19)
[2022-07-01 06:50] VITALS: BP 113/16
[2022-07-01] MEDS: SERTRALINE HCL 50 MG TAB PO SCH (08:29)
[2022-07-01] MEDS: busPIRone 10 MG TAB PO SCH ×2 (08:29→20:18)
[2022-07-01] MEDS: atenoloL 25 MG TAB PO SCH (08:29)
[2022-07-01] MEDS: CHOLESTYRAMINE 4 GM PWD PKT PO SCH ×2 (10:21→21:33)
[2022-07-01 17:07] LABS: THRYOGLOBULIN ANTIBODIES (ATA) < 1.0 IU/mL (0.0-0.9); THYROGLOBULIN QUANTITATIVE 5.8 ng/mL (1.5-38.5); THYROID STIMULATING IMMUNOGLOB <0.10 IU/L (0.00-0.55)
[2022-07-01 18:12] VITALS: BP 105/56
[2022-07-01] MEDS: risperiDONE 1 MG TAB PO SCH (20:18)
[2022-07-01] MEDS: traZODone 50 MG TAB PO SCH (20:18)
[2022-07-02 06:35] VITALS: BP 102/52
[2022-07-02] MEDS: risperiDONE 1 MG TAB PO SCH ×2 (08:18→20:29)
[2022-07-02] MEDS: SERTRALINE HCL 50 MG TAB PO SCH (08:18)
[2022-07-02] MEDS: busPIRone 10 MG TAB PO SCH ×2 (08:19→20:29)
[2022-07-02] MEDS: atenoloL 25 MG TAB PO SCH (08:19)
[2022-07-02] MEDS: CHOLESTYRAMINE 4 GM PWD PKT PO SCH (11:26)
[2022-07-02 17:55] VITALS: BP 108/52
[2022-07-02] MEDS: traZODone 50 MG TAB PO SCH (20:29)
[2022-07-03 06:44] VITALS: BP 112/66
[2022-07-03] MEDS: busPIRone 10 MG TAB PO SCH ×2 (08:48→21:04)
[2022-07-03] MEDS: risperiDONE 1 MG TAB PO SCH ×2 (08:49→21:04)
[2022-07-03] MEDS: SERTRALINE HCL 50 MG TAB PO SCH (08:49)
[2022-07-03] MEDS: atenoloL 25 MG TAB PO SCH (08:49)
[2022-07-03 18:30] VITALS: BP 110/58
[2022-07-03] MEDS: traZODone 50 MG TAB PO SCH (21:04)
[2022-07-04 06:30] VITALS: BP 105/55
[2022-07-04 08:03] LABS: FREE T3 4.6 PG/ML (2.2-4.0); FREE T4 1.04 NG/DL (0.76-1.46); THYROID STIMULATING HORMONE < 0.005 uIU/ML (0.358-3.740)
[2022-07-04] MEDS: atenoloL 25 MG TAB PO SCH (09:00)
[2022-07-04] MEDS: busPIRone 10 MG TAB PO SCH ×2 (09:05→21:01)
[2022-07-04] MEDS: risperiDONE 1 MG TAB PO SCH ×2 (09:05→21:01)
[2022-07-04] MEDS: SERTRALINE HCL 50 MG TAB PO SCH (09:10)
[2022-07-04 19:08] VITALS: BP 125/66
[2022-07-04] MEDS: traZODone 50 MG TAB PO SCH (21:01)
[2022-07-05 06:26] VITALS: BP 112/58
[2022-07-05] MEDS: OLANZapine ORAL DISINTEGRATING TAB 5MG PO PRN (06:36)
[2022-07-05] MEDS: risperiDONE 1 MG TAB PO SCH ×2 (08:30→21:25)
[2022-07-05] MEDS: SERTRALINE HCL 50 MG TAB PO SCH (08:30)
[2022-07-05] MEDS: busPIRone 10 MG TAB PO SCH ×2 (08:30→21:25)
[2022-07-05] MEDS: atenoloL 25 MG TAB PO SCH (08:31)
[2022-07-05] MEDS: traZODone 50 MG TAB PO SCH (21:25)
[2022-07-06 06:18] VITALS: BP 112/61
[2022-07-06] MEDS: risperiDONE 1 MG TAB PO SCH ×2 (08:13→20:49)
[2022-07-06] MEDS: busPIRone 10 MG TAB PO SCH ×2 (08:13→20:49)
[2022-07-06] MEDS: SERTRALINE HCL 50 MG TAB PO SCH (08:14)
[2022-07-06] MEDS: atenoloL 25 MG TAB PO SCH (08:14)
[2022-07-06 19:50] VITALS: BP 120/59
[2022-07-06] MEDS: traZODone 50 MG TAB PO SCH (20:49)
[2022-07-07 06:21] VITALS: BP 107/54
[2022-07-07 08:18] VITALS: BP 116/69
[2022-07-07] MEDS: SERTRALINE HCL 50 MG TAB PO SCH (08:20)
[2022-07-07] MEDS: busPIRone 10 MG TAB PO SCH ×2 (08:20→20:19)
[2022-07-07] MEDS: atenoloL 25 MG TAB PO SCH (08:20)
[2022-07-07] MEDS: risperiDONE 1 MG TAB PO SCH ×2 (08:20→20:20)
[2022-07-07 11:20] LABS: FREE T3 4.7 PG/ML (2.2-4.0); FREE T4 0.96 NG/DL (0.76-1.46); THYROID STIMULATING HORMONE < 0.005 uIU/ML (0.358-3.740)
[2022-07-07 12:32] LABS: HCG, SERUM QUALITATIVE NEGATIVE (NEGATIVE)
[2022-07-07 12:46] LABS: HCG, SERUM QUANTITATIVE < 1.0 MIU/ML
[2022-07-07 16:41] VITALS: BP 111/59
[2022-07-07] MEDS: traZODone 50 MG TAB PO SCH (20:20)
[2022-07-08 06:15] VITALS: BP 105/61
[2022-07-08] MEDS: risperiDONE 1 MG TAB PO SCH ×2 (08:22→20:36)
[2022-07-08] MEDS: atenoloL 25 MG TAB PO SCH (08:22)
[2022-07-08] MEDS: SERTRALINE HCL 50 MG TAB PO SCH (08:23)
[2022-07-08] MEDS: busPIRone 10 MG TAB PO SCH ×2 (08:23→20:36)
[2022-07-08] MEDS: ACETAMINOPHEN TAB 650MG DOSE (2X325MG) PO PRN (11:27)
[2022-07-08 16:56] VITALS: BP 103/58
[2022-07-08] MEDS: traZODone 50 MG TAB PO SCH (20:36)
[2022-07-09 07:42] VITALS: BP 114/70
[2022-07-09] MEDS: risperiDONE 1 MG TAB PO SCH ×2 (08:03→21:00)
[2022-07-09] MEDS: atenoloL 25 MG TAB PO SCH (08:04)
[2022-07-09] MEDS: SERTRALINE HCL 50 MG TAB PO SCH (08:04)
[2022-07-09] MEDS: busPIRone 10 MG TAB PO SCH ×2 (08:04→21:00)
[2022-07-09] MEDS: ACETAMINOPHEN TAB 650MG DOSE (2X325MG) PO PRN (09:20)
[2022-07-09 16:45] VITALS: BP 94/58
[2022-07-09] MEDS: traZODone 50 MG TAB PO SCH (21:00)
[2022-07-10 07:12] VITALS: BP 97/54
[2022-07-10] MEDS: risperiDONE 1 MG TAB PO SCH ×2 (08:19→21:02)
[2022-07-10] MEDS: busPIRone 10 MG TAB PO SCH ×2 (08:20→21:02)
[2022-07-10] MEDS: SERTRALINE HCL 50 MG TAB PO SCH (08:20)
[2022-07-10] MEDS: atenoloL 25 MG TAB PO SCH (08:21)
[2022-07-10 18:33] VITALS: BP 117/80
[2022-07-10 19:35] LABS: FREE T3 4.1 PG/ML (2.2-4.0); FREE T4 0.83 NG/DL (0.76-1.46); THYROID STIMULATING HORMONE < 0.005 uIU/ML (0.358-3.740)
[2022-07-10] MEDS: traZODone 50 MG TAB PO SCH (21:02)
[2022-07-11 06:41] VITALS: BP 100/54
[2022-07-11] MEDS: atenoloL 25 MG TAB PO SCH (09:00)
[2022-07-11] MEDS: SERTRALINE HCL 50 MG TAB PO SCH (09:02)
[2022-07-11] MEDS: busPIRone 10 MG TAB PO SCH ×2 (09:02→21:46)
[2022-07-11] MEDS: risperiDONE 1 MG TAB PO SCH ×2 (09:02→21:46)
[2022-07-11 16:36] VITALS: BP 100/56
[2022-07-11] MEDS: traZODone 50 MG TAB PO SCH (21:46)
[2022-07-12 06:41] VITALS: BP 120/71
[2022-07-12] MEDS: SERTRALINE HCL 50 MG TAB PO SCH (08:23)
[2022-07-12] MEDS: busPIRone 10 MG TAB PO SCH ×2 (08:23→20:30)
[2022-07-12] MEDS: risperiDONE 1 MG TAB PO SCH ×2 (08:23→20:30)
[2022-07-12] MEDS: atenoloL 25 MG TAB PO SCH (08:25)
[2022-07-12 16:23] VITALS: BP 122/70
[2022-07-12] MEDS: traZODone 50 MG TAB PO SCH (20:30)
[2022-07-13 06:21] VITALS: BP 102/50
[2022-07-13 07:57] LABS: FREE T3 4.2 PG/ML (2.2-4.0); FREE T4 0.82 NG/DL (0.76-1.46); THYROID STIMULATING HORMONE < 0.005 uIU/ML (0.358-3.740)
[2022-07-13] MEDS: SERTRALINE HCL 50 MG TAB PO SCH (08:41)
[2022-07-13] MEDS: busPIRone 10 MG TAB PO SCH ×2 (08:41→20:56)
[2022-07-13] MEDS: risperiDONE 1 MG TAB PO SCH ×2 (08:41→20:56)
[2022-07-13] MEDS: atenoloL 25 MG TAB PO SCH (08:43)
[2022-07-13 16:27] VITALS: BP 121/58
[2022-07-13] MEDS: traZODone 50 MG TAB PO SCH (20:56)
[2022-07-14 06:11] VITALS: BP 97/67
[2022-07-14] MEDS: SERTRALINE HCL 50 MG TAB PO SCH (08:26)
[2022-07-14] MEDS: busPIRone 10 MG TAB PO SCH ×2 (08:26→20:27)
[2022-07-14] MEDS: risperiDONE 1 MG TAB PO SCH ×2 (08:26→20:27)
[2022-07-14] MEDS: atenoloL 25 MG TAB PO SCH (08:29)
[2022-07-14 18:30] VITALS: BP 101/55
[2022-07-14] MEDS: traZODone 50 MG TAB PO SCH (20:27)
[2022-07-15 06:14] VITALS: BP 98/55
[2022-07-15] MEDS: SERTRALINE HCL 50 MG TAB PO SCH (08:57)
[2022-07-15] MEDS: risperiDONE 1 MG TAB PO SCH ×2 (08:57→20:24)
[2022-07-15] MEDS: busPIRone 10 MG TAB PO SCH ×2 (08:57→20:24)
[2022-07-15] MEDS: atenoloL 25 MG TAB PO SCH (09:00)
[2022-07-15 17:55] VITALS: BP 99/58
[2022-07-15] MEDS: traZODone 50 MG TAB PO SCH (20:22)
[2022-07-16 06:18] VITALS: BP 95/54
[2022-07-16 07:46] LABS: FREE T3 3.8 PG/ML (2.2-4.0); FREE T4 0.76 NG/DL (0.76-1.46); THYROID STIMULATING HORMONE < 0.005 uIU/ML (0.358-3.740)
[2022-07-16] MEDS: SERTRALINE HCL 50 MG TAB PO SCH (08:24)
[2022-07-16] MEDS: risperiDONE 1 MG TAB PO SCH ×2 (08:24→20:20)
[2022-07-16] MEDS: busPIRone 10 MG TAB PO SCH ×2 (08:24→20:21)
[2022-07-16] MEDS: atenoloL 25 MG TAB PO SCH (08:24)
[2022-07-17 06:41] VITALS: BP 103/55
[2022-07-17] MEDS: atenoloL 25 MG TAB PO SCH (08:23)
[2022-07-17] MEDS: risperiDONE 1 MG TAB PO SCH ×2 (08:23→20:32)
[2022-07-17] MEDS: SERTRALINE HCL 50 MG TAB PO SCH (08:23)
[2022-07-17] MEDS: busPIRone 10 MG TAB PO SCH ×2 (08:23→20:32)
[2022-07-17] MEDS ORDERED: HYDR-3363 PO (16:11)
[2022-07-17] MEDS ORDERED: SERT50TA29 PO (16:11)
[2022-07-17] MEDS ORDERED: ATEN25TA PO (16:11)
[2022-07-17] MEDS ORDERED: RISP-8 PO (16:11)
[2022-07-17] MEDS ORDERED: BUSP10TA PO (16:11)
[2022-07-17 18:11] VITALS: BP 106/56
[2022-07-18 06:14] VITALS: BP 99/52
[2022-07-18] MEDS: busPIRone 10 MG TAB PO SCH (08:50)
[2022-07-18 08:52] VITALS: BP 122/65
[2022-07-18] MEDS: risperiDONE 1 MG TAB PO SCH (08:52)
[2022-07-18] MEDS: atenoloL 25 MG TAB PO SCH (08:52)
[2022-07-18] MEDS: SERTRALINE HCL 50 MG TAB PO SCH (08:52)
== END 2022-07-18 11:11 | disposition home or self-care (01) | DRG 757 ==
LOC: M ED 20:06 → M ED INP 06-25 21:02 → M PSY 06-25 23:02
PROVIDERS: ADMIT Psychiatry & Neurology Psychiatry; ATTEND Psychiatry & Neurology Psychiatry
DX: F53.1 Puerperal psychosis (principal); R45.851 Suicidal ideations; F33.2 Major depressive disorder, recurrent severe without psychotic features; R45.850 Homicidal ideations; E05.00 Thyrotoxicosis with diffuse goiter without thyrotoxic crisis or storm; Z79.899 Other long term (current) drug therapy; Z20.822 Contact with and (suspected) exposure to COVID-19; Z88.8 Allergy status to other drugs, medicaments and biological substances